=== PATIENT | female | born 1995 | race Hispanic/Latino ===

== ENCOUNTER 2024-06-15 11:05 | Day surgery (SDC) | payer MEDICAID, OTHER ==
[2024-06-15] MEDS ORDERED: hydrALAZINE 20 MG/ML VIAL SLOW IVP PRN (12:07)
[2024-06-15 12:10] VITALS: BMI 36.5
[2024-06-15 12:58] LABS: Bilirubin Neg (Negative); Blood, Urine Negative (Negative); Clarity Clear (Clear); Glucose, Urine (Dipstick) Normal (Negative); Ketone, Urine Negative (Negative); Leukocyte Negative (Negative); Nitrite Negative (Negative); Protein, Urine (Dipstick) Negative (Neg-Trace); Specific Gravity, Urine 1.005 (1.005-1.030); Urobilinogen Normal mg/dL (Less than 2); pH, Urine 6.5 (5.0-9.0)
[2024-06-15] MEDS: Acetaminophen 500 MG TAB PO SCH (13:01)
[2024-06-15 13:40] LABS: Bacteria/HPF None Seen HPF (None Seen); CAUTI Indications for Culture Dysuria,urgency,freq; RBC/HPF None Seen HPF (0-3); Squamous Epithelial 0-3 HPF (0-3); Urine Culture Reflex No No; WBC/HPF None Seen HPF (0-3)
== END 2024-06-15 14:40 | disposition home or self-care (01) ==
LOC: CSHLD/OP 11:05
PROVIDERS: ATTEND Obstetrics & Gynecology
DX: O47.1 False labor at or after 37 completed weeks of gestation (principal); O36.8130 Decreased fetal movements, third trimester, not applicable or unspecified; O34.211 Maternal care for low transverse scar from previous cesarean delivery; O26.843 Uterine size-date discrepancy, third trimester; O99.013 Anemia complicating pregnancy, third trimester; O99.891 Other specified diseases and conditions complicating pregnancy; R35.0 Frequency of micturition; Z87.59 Personal history of other complications of pregnancy, childbirth and the puerperium; Z85.3 Personal history of malignant neoplasm of breast; Z3A.38 38 weeks gestation of pregnancy
CPT/HCPCS: 76819; 81001; 99284